=== PATIENT | male | born 1945 | race Asian ===

== ENCOUNTER 2018-10-18 21:56 | Emergency (ER) | payer MEDICARE, OTHER ==
[~2018-10-18] VITALS: Ht 165.1 cm; Wt 100.0 kg
[~2018-10-18 21:56] MED LIST: ATOR20TA86 PO; CALC1TAB15 PO; VITAD1000 PO
[2018-10-18 22:28] VITALS: BP 167/89
[2018-10-18] MEDS ORDERED: MELO-107 PO (22:42)
== END 2018-10-18 23:00 | disposition left against medical advice (07) ==
LOC: EMS 21:57
DX: I10 Essential (primary) hypertension (principal); Z53.21 Procedure and treatment not carried out due to patient leaving prior to being seen by health care provider